=== PATIENT | female | born 1940 | race Caucasian/White ===

== ENCOUNTER 2021-09-12 16:52 | Emergency (ER) | payer OTHER ==
[~2021-09-12] VITALS: Ht 165.1 cm; Wt 86.2 kg
[2021-09-12 16:55] VITALS: BP 179/86
[2021-09-12] MEDS ORDERED: NORCO5 PO (18:38)
== END 2021-09-12 19:03 | disposition home or self-care (01) ==
LOC: ER 16:52
DX: M54.42 Lumbago with sciatica, left side (principal); M54.41 Lumbago with sciatica, right side; Z88.0 Allergy status to penicillin; Z88.5 Allergy status to narcotic agent; Z88.8 Allergy status to other drugs, medicaments and biological substances; Z88.6 Allergy status to analgesic agent